=== PATIENT | male | born 1960 | race Caucasian/White ===

== ENCOUNTER → 2017-09-22 | Outpatient (CLI) | payer BC ==
[~2017-09-22] MED LIST: AMLODIPINE BESY10 M1 PO; ASPIR 8181 MG PO; ATORVASTATIN 4040 MG; BAYER ASPIRIN C81 MG PO; CARVEDILOL 25MG25 MG PO; CLOPIDOGREL75 M2 PO; COLCRYS0.6 M1 PO; COMBIVENT RESPI1 SPR; COMBIVENT RESPI1 SPR IH; CRESTOR20 MG PO; DOXAZOSIN 4MG TA4 MG PO; FARXIGA10 MG; FENOFIBRATE145 MG; FISH OIL1000 MG PO; GABAPENTIN300 M1 PO; GLIMEPIRIDE 4MG4 MG PO; HYDRALAZINE HC100 MG PO; HYDROCODON APAP PO; HYDROCODONE-APA1 TA1 PO; INVOKANA300 MG PO; LISINOPRIL40 MG PO; NITROGLYCERIN0.4 MG SL; NOVOLOG MI100 UNITS/ SC; NOVOLOG MI100 UNITS1 SC; OMEPRAZOLE40 MG PO; PLAVIX75 M1; TRIAMTERENE HCTZ PO; TRIAMTERENE/HCT1 TAB PO; VICTOZA6 MG/ML; VITAMIN D1000 IU PO; XARELTO20 MG; [UNRECOGNIZED DRUG - OTHER] PO
--- NOTE | 2017-09-22 09:27 | RADIOLOGY REPORT PS360 ---
ARTERIAL/[id number] NON HEALING WOUND, nonhealing wound right ankle, smoker, rest pain and claudication, ORDERING PHYSICIAN: PRIETO ORR DPM PATIENT AGE: 56 years TECHNIQUE: Segmental pressures obtained of both right and left leg. These are compared to brachial blood pressure to yield index at each level sampled including summary BOB. The data sheets from the procedure are available in PACS FINDINGS Rest study only performed today No prior studies available for comparison. Blood pressures reported are in millimeters mercury. RIGHT LEG BOB = 0.8 Right TBI is 0.5. Brachial BP: 169 Thigh BP: 1:30 Calf BP: 139 Ankle PT: 138 Ankle DP : 108 Digit =92 LEFT LEG BOB = 0.9 Left TBI is 0.5 Brachial BPD: 172 Thigh BP: 147 Calf BP: 149 Ankle PT:148 Ankle DP: 88 Digit = 87 Pulses and waveforms: Diminished pulses and waveforms IMPRESSION: Slightly low right BOB indicating mild peripheral vascular disease. Toe brachial index is 0.5 on both sides indicating [id number] small vessel disease.
== END ==
LOC: RT 08:00
DX: L97.909 Non-pressure chronic ulcer of unspecified part of unspecified lower leg with unspecified severity (principal); E11.621 Type 2 diabetes mellitus with foot ulcer